=== PATIENT | male | born 1950 | race Caucasian/White ===

== ENCOUNTER 2020-03-29 16:19 | Inpatient (IN) | payer BC, MEDICARE ==
[~2020-03-29] VITALS: Ht 177.8 cm; Wt 114.3 kg
[~2020-03-29 16:19] MED LIST: Levaquin750 MG PO; XARELTO15 MG PO; XARELTO20 MG PO
[2020-03-29 17:24] LABS: BASOPHILS ABSOLUTE AUTO 0.08 K/mm3 (0.00-0.23); BASOPHILS PERCENT AUTO 1 % (0-2); EOSINOPHILS ABSOLUTE AUTO 0.11 K/mm3 (0.00-0.68); EOSINOPHILS PERCENT AUTO 1 % (0-6); Hematocrit 46.6 % (37.0-53.0); Hemoglobin 15.4 g/dL (13.5-17.5); IMMATURE GRAN ABSOLUTE AUTO 0.15 K/mm3 (0.00-0.10); IMMATURE GRAN PERCENT AUTO 1 % (0-1); LYMPHOCYTES ABSOLUTE AUTO 1.51 K/mm3 (0.84-5.20); LYMPHOCYTES PERCENT AUTO 10 % (21-46); MONOCYTES ABSOLUTE AUTO 1.72 K/mm3 (0.16-1.47); MONOCYTES PERCENT AUTO 12 % (4-13); Mean Corpuscular HGB 31.1 pg (26.0-34.0); Mean Corpuscular Volume 94 fL (80-100); Mean Platelet Volume 9.7 fL (9.1-12.4); NEUTROPHILS ABSOLUTE AUTO 11.31 K/mm3 (1.96-9.15); NEUTROPHILS PERCENT AUTO 76 % (41-73); Platelet Count 301 K/mm3 (150-400); RDW Coefficient Variation 12.1 % (11.7-14.2); Red Blood Cell Count 4.95 M/mm3 (4.30-5.90); White Blood Cell Count 14.88 K/mm3 (4.00-11.30)
[2020-03-29 17:47] LABS: Alanine Aminotransfer (ALT/SGP 29 U/L (12-78); Albumin, Blood 3.2 g/dL (3.4-5.0); Albumin/Globulin Ratio 0.8 (0.8-1.8); Alk Phos 74 U/L (50-136); Anion Gap 6 mmol/L (6-16); Aspartate Aminotrans (AST/SGOT 17 U/L (12-37); Bilirubin, Total 1.1 mg/dL (0.1-1.0); Blood Urea Nitrogen 15 mg/dL (8-24); Bun/Creatinine Ratio 15.9 (12.0-20.0); CO2, Blood 26 mmol/L (21-32); Calcium, Blood 8.6 mg/dL (8.5-10.1); Chloride, Blood 105 mmol/L (98-108); Creatinine, Blood 0.94 mg/dL (0.60-1.20); Glomerular Filtration Rate >60 (60-); Glucose, Blood 155 mg/dL (70-99); Potassium, Blood 4.3 mmol/L (3.5-5.5); Sodium, Blood 137 mmol/L (136-145); Total Protein, Blood 7.2 g/dL (6.4-8.2)
--- NOTE | 2020-03-29 23:15 | NUR ---
ADMIT RECEIVED FROM ER VIA [facility]. STOOD FROM [facility] AND STEPPED OVER TO BED. C/O INCREASED PAIN IN RLE WITH MOVEMENT. ALERT AND ORIENTED. REPOSITIONS SELF IN BED. O2 3L NC. SLIGHT DYSPNEA NOTED WITH EXERTION AND SLIGHTLY WITH TALKING, ALTHOUGH PT STATES THAT HIS SHORTNESS OF BREATH IS FROM THE PAIN IN HIS LEG. MONITOR SHOWS NSR, RATE 80s. BP STABLE. TEMP 100.OF. HEPARIN INFUSING AT 15UNITS/KG/HR WITH DOSING WEIGHT OF 89KG. DARK SKIN NOTED TO LLE- PT STATES FROM PREVIOUS DVT. RLE IS SWOLLEN AND IS HOT TO TOUCH. PT STATES THAT PAIN IS IN CALF. BILATERAL TOES ARE FLUSHED/RED. SEE ADMIT ASSESSMENT FOR FULL ASSESSMENT.
[2020-03-30 04:16] LABS: BASOPHILS ABSOLUTE AUTO 0.08 K/mm3 (0.00-0.23); BASOPHILS PERCENT AUTO 1 % (0-2); EOSINOPHILS PERCENT AUTO 1 % (0-6); Hematocrit 46.1 % (37.0-53.0); Hemoglobin 15.2 g/dL (13.5-17.5); IMMATURE GRAN ABSOLUTE AUTO 0.16 K/mm3 (0.00-0.10); IMMATURE GRAN PERCENT AUTO 1 % (0-1); LYMPHOCYTES PERCENT AUTO 19 % (21-46); MONOCYTES ABSOLUTE AUTO 1.91 K/mm3 (0.16-1.47); MONOCYTES PERCENT AUTO 13 % (4-13); Mean Corpuscular Volume 94 fL (80-100); Mean Platelet Volume 9.7 fL (9.1-12.4); NEUTROPHILS ABSOLUTE AUTO 9.74 K/mm3 (1.96-9.15); NEUTROPHILS PERCENT AUTO 65 % (41-73); Platelet Count 294 K/mm3 (150-400); RDW Coefficient Variation 12.1 % (11.7-14.2); RDW Standard Deviation 42.4 fL (35.1-46.3); White Blood Cell Count 14.99 K/mm3 (4.00-11.30)
[2020-03-30 04:33] LABS: Anion Gap 7 mmol/L (6-16); Blood Urea Nitrogen 15 mg/dL (8-24); Bun/Creatinine Ratio 16.1 (12.0-20.0); CO2, Blood 28 mmol/L (21-32); Calcium, Blood 8.6 mg/dL (8.5-10.1); Chloride, Blood 103 mmol/L (98-108); Creatinine, Blood 0.93 mg/dL (0.60-1.20); Glomerular Filtration Rate >60 (60-); Glucose, Blood 146 mg/dL (70-99); Sodium, Blood 138 mmol/L (136-145)
--- NOTE | 2020-03-30 04:49 | NUR ---
HEPARIN GTT PER PHARMACY, HEPARIN BOLUS 4500 UNITS IV GIVEN AND HEPARIN GTT INCREASED TO 17UNITS/KG/HR. NEXT PTT SCHEDULED FOR 1200.
--- NOTE | 2020-03-30 06:47 | NUR ---
SHIFT SUMMARY NO ACUTE CHANGES. HEPARIN GTT NOW AT 17UNITS/KG/HR PER PHARMACY- NEXT PTT AT 1200. CONTINUES TO C/O PAIN IN RLE- MEDICATED WITH DILAUDID 1MG IV X 1 DOSE AND ROXICODONE 5MG PO X 2 DOSES WITH ADEQUATE RELIEF OF PAIN PER PATIENT. CONTINUES WITH DYSPNEA ON EXERTION. PT IS ON 3L NC- SATS STABLE. REFUSED OFFER OF CPAP FOR SLEEP. NO URINE VOID YET, BUT VOIDED IN ER PRIOR TO ARRIVAL TO ICU. WILL REPORT TO ONCOMING RN WHEN AVAILABLE.
--- NOTE | 2020-03-30 09:00 | NUR ---
ASSUMED CARE BEDSIDE REPORT RECIEVED. PT IS AWAKE, ALERT, AND ORIENTED. PT IS PLEASANT AND VERY TALKATIVE. PT ANSWERS QUESTIONS APPROPRIATELY. HEPARIN GTT INFUSING AT 17 NITS/KG/HR PER PHARMACY. VITAL SIGNS STABLE. PT ON ROOM AIR. PT WITH GOOD APPETITE THIS AM. RIGHT LOWER EXTREMITY SWELLING AND TIGHT SKIN NOTED. DISCUSSED PLAN OF CARE RELATED TO DVT AND PE'S EXTENSIVLY WITH PT. PT CLIMBED OVER BEDRAIL TO STAND TO USE URINAL WITHOUT ANY STAFF ASSISTANCE. PT WITH DARK DEYA URINE OUTPUT NOTED. WILL CONTINUE TO MONITOR.
--- NOTE | 2020-03-30 17:09 | NUR ---
SHIFT SUMMARY NO ACUTE CHANGES THIS SHIFT. PT REMAINS PCU STATUS. PT IS ALERT AND ORIENTED. PT IS PLEASANT AND TALKATIVE. VITAL SIGNS REMAINS STABLE. PT ON ROOM AIR WHEN AWAKE AND ON 2L O2 NC WHILE SLEEPING. PT DENIES ANY SOB OR CHEST PAIN. PT DOES COMPLAIN OF PAIN TO RIGHT LOWER EXTREMITY. SWELLING, COLOR, AND SKIN REMAIN UNCHANGED TO RLE. HEPARIN GTT INFUSING AT 19 UNITS/KG/HR. PT USING URINAL TO VOID AT BEDSIDE. WILL CONTINUE TO MONITOR AND REPORT OFF TO ONCOMING RN.
--- NOTE | 2020-03-31 00:29 | NUR ---
AMBULATION PT EDUCATED ON THE REASONS FOR REMAINING BEDREST RIGHT NOW DUE RO POSSIBILITY OF DVT/PE'S MIGRATING. PT AWARE OF RISKS BUT STATES HE STILL HAS TO STAND TO VOID AND USE TOILET. PT STATES DISLIKE FOR STAYING IN BED ENJOYS AUTONOMY.
[2020-03-31 03:34] LABS: Hemoglobin 14.1 g/dL (13.5-17.5)
--- NOTE | 2020-03-31 04:27 | NUR ---
SHIFT SUMMARY NO ACUTE CHANGES THIS SHIFT. VSS. REMAINS AXO. DENIES CP/SOB. REMAINS IN SR. PT USUALLY ON RA BUT PLACES 2LNC ON WHILE ASLEEP. PT C/O SEVERE PAIN TO R LEG POST AMBULATING. SEE EMAR. PAIN REGIMEN APPEARS TO WORK APPRORIATELY FOR PATIENT. URINE CONTINUES TO REMAIN DARK YELLOW. HEPARIN GTT CONTINUES TO INFUSE. PT RESTING OFF AND ON IN ROOM. WILL CONTINUE TO MONITOR UNTIL SHIFT CHANGE.
--- NOTE | 2020-03-31 07:45 | NUR ---
ASSUMED CARE REPORT RECIEVED. PT IS SITTING UP IN BED AWAKE, ALERT, AND ORIENTED. PT DENIES PAIN AT THIS TIME. PT REPORTS PAIN TO RLE WHEN UP OOB. REITTERATED RISKS OF PT INDEPENDENTLY GETTING UP OUT OF BED WITH DVT. PT GETS UP OOB TO VOID WITH URINAL. VITAL SIGNS STABLE AT THIS TIME. PT ON 2L O2 NC. HEPARIN GTT INFUSING AT 22 UNITS/KG/HR. SWELLING TO RLE NOTED. AREA IS WARM TO TOUCH. WILL CONTINUE TO MONITOR.
--- NOTE | 2020-03-31 17:23 | NUR ---
SHIFT SUMMARY NO ACUTE CHANGES THIS SHIFT. PT REMAINS AWAKE, ALERT, AND ORIENTED. VITAL SIGNS HAVE REMAINED STABLE. PT ON RA WHEN AWAKE. HEPARIN GTT INFUSING AT 24 UNITS/KG/HR. PT UP TO TOILET INDEPENDENTLY TODAY. SWELLING TO RIGHT LOWER EXTREMITY REMAINS UNCHANGED. PT MED FOR PAIN PER EMAR. PT SPOUSE AT BEDSIDE THIS EVENING. PT HAS REPOSITIONED SELF IN BED INDEPENDENTLY. WILL CONTINUE TO MONITOR AND REPORT OFF TO ONCOMING RN.
--- NOTE | 2020-03-31 19:50 | NUR ---
ASSUMED CARE PT IS RESTING QUIETLY RECLINING IN BED, SPEAKS IN FULL SENTENCES, DENIES SOB/DYSPNEA, DENIES CP/PRESSURE, STATES THAT HIS RIGHT LEG PAIN INCREASES AFTER STANDING ON IT FOR SEVERAL MINUTES. HE STATES THAT THE IV PAIN MEDICATION WORKS QUICKLY TO CONTROL THIS PAIN HOWEVER WEARS OFF WITHIN THE HOUR OF ADMINISTRATION AND HE IS CONCERNED REGARDING THE NUMBER OF STEPS INTO HIS HOME, [address] FROM [address] HOSPITAL, AT THE TIME THAT HE IS DISCHARGED. HE STATES THAT THE PO PAIN MEDICATION LASTS MUCH LONGER THAN THE IV MEDICATION BUT THAT IT "TAKES SO LONG TO WORK" HE BELIEVES THAT PO MEDS WILL ADEQUATELY CONTROL HIS PAIN IF HE TAKES "MAYBE 3 OF THOSE LITTLE WHITE PAIN PILLS THEY WERE GIVING ME ONE OF" PT IS ENCOURAGED TO DISCUSS HIS CONCERNS WITH PHYSICIAN ON ROUNDS IN AM.
--- NOTE | 2020-04-01 05:14 | NUR ---
PT RESTED QUIETLY THROUGHOUT SHIFT, FREQUENT C/O PAIN LEVELS OF 20-45 UNTIL 2229 AT WHICH TIME, DILAUDID IV WAS ADMINISTERED FOR CURRENT PAIN LEVEL AND OXYCODONE WAS ADMINISTERED PT STATES THAT DILAUDID HAD BEEN WEARING OFF WITHIN THE HOUR OF ADMINISTRATION. HE NOW REPORTS PAIN 8-9/10 AND WAS AGREEABLE WITH PO ROXYCODONE FOR PAIN MANAGEMENT. ASSESSMENT OTHERWISE REMAINS UNCHANGED THROUGHOUT NOC.
[2020-04-01] MEDS ORDERED: DOCU100 PO (10:41)
[2020-04-01] MEDS ORDERED: XARELTO20 MG PO (10:42)
[2020-04-01] MEDS ORDERED: Percocet 5-3251 EACH PO (10:42)
[2020-04-01] MEDS ORDERED: SENN187 PO (10:43)
--- NOTE | 2020-04-01 10:56 | NUR ---
Review of advance directive and having a decision maker. pt open to taking directive home and filling it out with his . contact information given.
--- NOTE | 2020-04-01 12:17 | NUR ---
DISCHARGE INSTRUCTIONS GONE OVER WITH PT AND FAMILY. INSTRUCTED PT ON NEW PRESCRIPTIONS AND COMPLIANCE. PT STATED UNDERSTANDING. BELONGINGS GATHERED AND GIVEN TO PT. PT ESCORTED OUT BY WHEELCHAIR WITH PCT TO AWAITING RIDE.
[2020-04-10 18:10] LABS: ACT. PRT C RESIST W/FV DEFIC. 2.6 ratio (.); APTT 31.1 sec (.); DRVVT CONFIRM SECONDS 38.3 sec (.); DRVVT RATIO 1.2 ratio (.); FACTOR VIII ACTIVITY 282 % (.); HEXAGONAL PHOSPHOLIPID NEUTRAL 0 sec (.); HOMOCYSTEINE 8.6 umol/L (.); PRT C ACTIVITY (CHROMOGENIC) 92 % (.)
== END 2020-04-01 12:20 | disposition home or self-care (01) | DRG 176 ==
LOC: ER 16:19 → ICUE 21:37 → ICUW 21:37 → ICUE 23:08
PROVIDERS: Emergency Medicine; Internal Medicine; Nurse Practitioner Acute Care; ADMIT Internal Medicine
DX: I26.99 Other pulmonary embolism without acute cor pulmonale (principal); I82.401 Acute embolism and thrombosis of unspecified deep veins of right lower extremity; G47.33 Obstructive sleep apnea (adult) (pediatric); I83.90 Asymptomatic varicose veins of unspecified lower extremity; K76.9 Liver disease, unspecified; Z86.718 Personal history of other venous thrombosis and embolism
CPT/HCPCS: 36415; 71045; 71260; 80048; 80053; 81240; 83090; 83880; 84484; 85014; 85018; 85025; 85240; 85300; 85303; 85306; 85307; 85613; 85730; 85732; 86146; 86147; 93005; 93010; 93306; 93970; 96374; 96375; 96376; 99285-25; A9270; J1170; J1644; J2270; Q9967